=== PATIENT | male | born 1985 | race Two or more races ===

== ENCOUNTER 2022-05-26 13:34 | Emergency (ER) | payer SELFPAY | END 2022-05-26 17:25 | disposition home or self-care (01) | LOC: JD.ED 13:34 | DX: S82.832A Other fracture of upper and lower end of left fibula, initial encounter for closed fracture (principal); S82.102A Unspecified fracture of upper end of left tibia, initial encounter for closed fracture; E78.00 Pure hypercholesterolemia, unspecified; I10 Essential (primary) hypertension; Z79.899 Other long term (current) drug therapy; W01.198A Fall on same level from slipping, tripping and stumbling with subsequent striking against other object, initial encounter | CPT/HCPCS: 29505; 73560-26-LT; 73560-LT; 73590-26-LT; 73590-LT; 73600-26-LT; 73600-LT; 73620-26-LT; 73620-LT; 99283-25 ==